=== PATIENT | female | born 1940 | race Caucasian/White ===

== ENCOUNTER → 2020-08-11 | Day surgery (SDC) | payer SELFPAY ==
[2020-08-06 14:53] LABS: BASOPHILS # (AUTO) 0.1 (0.0-0.1); BASOPHILS % 0.8 % (0.0-1.0); EOSINOPHILS # (AUTO) 0.3 (0.0-0.4); EOSINOPHILS % 4.3 % (0.0-6.0); HEMATOCRIT 38.8 % (34.2-44.1); HEMOGLOBIN 12.9 g/dL (12.0-16.0); LYMPHOCYTES # (AUTO) 1.2 (1.0-3.2); LYMPHOCYTES % 15.9 % (18.0-39.1); MEAN CORPUSCULAR HEMOGLOBIN 30.8 pg (28-32); MEAN CORPUSCULAR HGB CONC 33.2 g/dL (31-35); MEAN CORPUSCULAR VOLUME 92.6 fL (81-99); MONOCYTES # (AUTO) 0.6 (0.2-0.8); MONOCYTES % 8.4 % (4.4-11.3); NEUTROPHILS # (AUTO) 5.3 (2.1-6.9); NEUTROPHILS % 70.3 % (38.7-80.0); PLATELET COUNT 162 x10e3/uL (140-360); RED BLOOD COUNT 4.19 x10e6/uL (3.6-5.1); RED CELL DISTRIBUTION WIDTH 13.3 % (11.7-14.4)
[~2020-08-11] MED LIST: ABILIFY10 MG PO; ALPRAZOLAM1 MG; AMITRIPTYLINE H10 MG; AMLODIPINE BESY10 MG PO; ASPIR 8181 MG PO; BIOTIN; BUPIVACAINE 0.5%/EPI 30 ML SDV INJ ONE; BUPIVACAINE HCL 0.5% INJ 30 ML VIAL INJ ONE; CALTRATE 600600 MG; CEPHALEXIN500 M1; CLINDAMYCIN 600MG / 50ML 50 ML IV ONE; CYMBALTA60 MG; DEXAMETHASONE SOD PHOS INJ 4 MG/ML VIAL ONE; ELAVIL PO; EPHEDRINE SULFATE INJ 50 MG/ML VIAL ONE; ETODOLAC300 MG PO; ETODOLAC600 MG; FERROUS SULFAT325 M1 PO; FEXOFENADINE H180 MG PO; FISH OIL 1,2001 EACH; GARCINIA CAMBOGIA PO; GINKGO BILOBA60 M3; L-ARGININE500 MG PO; LIDOCAINE HCL 2% LOCAL INJ 5 ML SDV VIAL INJ ONE; MAGNESIUM OXID400 MG PO; METOPROLOL SUCC50 MG PO; MULTIVITAMIN; MUPIROCIN 2% OINT 22 GM TUBE ONE; NORVASC10 MG PO; OCUVITE TABLET1 EAC1 PO; OMEPRAZOLE40 MG PO; ONDANSETRON HCL INJ 2MG/ML 2ML 2 MG/ML VIAL ONE; PANTOPRAZOLE SO40 MG PO; PATADAY; PHENYLEPHRINE HCL 1% 10 MG/ML VIAL ONE; POVIDONE IODINE 0.05% 0.05 % ML PO ONE; PRAVACHOL40 MG PO; PROPOFOL IV EMULSION 10 MG/ML 20 ML VIAL ONE; SEVOFLURANE INHAL SOLN 250 ML PEN BTL ONE; TAPAZOLE10 MG PO; TOPROL XL25 MG PO; TYLENOL # 31 EA PO; VIBRYD PO; VITAMIN D; XANAX0.5 MG PO
[2020-08-11 09:45] VITALS: BP 123/67
== END | disposition home or self-care (01) ==
LOC: OR 06:05 → MERGE 07:30
PROVIDERS: ATTEND Plastic Surgery
DX: L98.7 Excessive and redundant skin and subcutaneous tissue (principal); Z41.1 Encounter for cosmetic surgery; I10 Essential (primary) hypertension; E78.5 Hyperlipidemia, unspecified; I47.1 Supraventricular tachycardia; E03.9 Hypothyroidism, unspecified; F32.9 Major depressive disorder, single episode, unspecified; Z88.0 Allergy status to penicillin; Z01.810 Encounter for preprocedural cardiovascular examination; Z01.812 Encounter for preprocedural laboratory examination; Z01.818 Encounter for other preprocedural examination
CPT/HCPCS: 15825; 36415; 71046; 85025; 93005; J1100; J2001; J2370; J2405; J2704